=== PATIENT | male | born 1940 | race Caucasian/White ===

== ENCOUNTER 2017-12-01 07:13 | Inpatient (IN) ==
[2017-11-25 12:25] LABS: Basophils # (Auto) 0 K/mcL (0.0-0.3); Basophils % (Auto) 0.5 % (0.0-2.0); Eosinophils # (Auto) 0.1 K/mcL (0.0-0.7); Granulocytes % (Auto) 72.5 % (38.0-78.0); Lymphocytes # (Auto) 1.4 K/mcL (1.5-4.8); Lymphocytes % (Auto) 17.4 % (15.5-49.0); Mean Cell Volume 92.3 fL (80.0-100.0); Mean Corpuscular HGB Conc 33.6 g/dL (31.0-36.0); Monocytes # (Auto) 0.7 K/mcL (0.1-0.9); Monocytes % (Auto) 8.6 % (1.0-12.0); Platelet Count 264 K/mcL (140-440); RBC 5.08 M/mcL (4.50-5.90); Red Cell Distribution Width 13.4 % (11.5-14.5)
[2017-11-25 12:46] LABS: Blood Urea Nitrogen 16 mg/dl (8-23)
[2017-11-25 13:43] LABS: Appearance,Urine CLEAR; Bacteria,Urine 0 /hpf (0); Bilirubin,Urine NEG (NEG); Color,Urine YELLOW; Glucose,Urine (UA) NEGATIVE (NEG); Leukocyte Esterase,Urine NEG /uL (NEG); Mucus,Urine FEW /hpf (0); Protein,Urine 100 mg/dL (NEG); Specific Gravity,Urine 1.014 (1.000-1.035); Urine Blood >=1.0 mg/dL (<0.03); Urine RBC > 182 /hpf (0-1); Urine Squamous Epithelial Cell 0 /hpf (0-4); Urine WBC 11 /hpf (0-4); Urobilinogen,Urine NEG (NEG)
[~2017-12-01 07:13] MED LIST: CELECOXIB 200 MG CAPSULE PO SCH; KETOROLAC 30 MG, ROPIVACAINE HCL/PF 49.5 ML, EPINEPHrine 0.5 MG, 0.9 % SODIUM CHLORIDE ... IJ SCH; PREGABALIN 75 MG CAPSULE PO SCH; ceFAZolin 1 GM VIAL IV SCH; oxyCODONE 10 MG TAB.ER.12H PO SCH
[2017-12-01] MEDS ORDERED: 0.9 % SODIUM CHLORIDE 250 ML IV SCH (07:45)
[2017-12-01] MEDS ORDERED: TRANEXAMIC ACID 1,000 MG/10 ML VIAL IV ONE ×2 (09:30→11:35)
[2017-12-01] MEDS ORDERED: ONDANSETRON 4 MG/2 ML VIAL IV ONE (09:30)
[2017-12-01] MEDS ORDERED: LIDOCAINE HCL/PF 100 MG/5 ML SYRINGE IV ONE (09:30)
[2017-12-01] MEDS ORDERED: PROPOFOL 200 MG/20 ML VIAL IV ONE (09:30)
[2017-12-01] MEDS ORDERED: GLYCOPYRROLATE 0.2 MG/ML VIAL IV ONE (09:30)
[2017-12-01] MEDS ORDERED: PHENYLEPHRINE 10 MG/ML VIAL IV ONE (09:30)
[2017-12-01] MEDS ORDERED: MIDAZOLAM 5 MG/5 ML VIAL IV ONE (09:30)
[2017-12-01] MEDS ORDERED: DEXAMETHASONE 10 MG/ML VIAL IV ONE (09:30)
[2017-12-01] MEDS ORDERED: BUPIVACAINE W/EPI 0.5% 50 ML VIAL IJ ONE (09:30)
[2017-12-01] MEDS ORDERED: ACETAMINOPHEN 1,000 MG/100 ML BOTTLE IV ONE (11:06)
[2017-12-01] MEDS ORDERED: fentaNYL 100 MCG/2 ML VIAL IV PRN (11:06)
[2017-12-01] MEDS ORDERED: ONDANSETRON 4 MG/2 ML VIAL IV PRN ×2 (11:06→11:35)
[2017-12-01] MEDS ORDERED: PROMETHAZINE 25 MG/ML VIAL IV PRN (11:06)
[2017-12-01] MEDS ORDERED: MEPERIDINE 25 MG/ML SYRINGE IV PRN (11:06)
[2017-12-01] MEDS ORDERED: METHOCARBAMOL 1,000 MG/10 ML VIAL IV PRN (11:06)
[2017-12-01] MEDS ORDERED: IPRATROPIUM/ALBUTEROL 3 ML AMPUL.NEB NEB PRN (11:06)
[2017-12-01] MEDS ORDERED: LACTATED RINGERS 1,000 ML IV SCH (11:15)
[2017-12-01] MEDS ORDERED: BENZOCAINE/MENTHOL 1 LOZENGE PO PRN (11:35)
[2017-12-01] MEDS ORDERED: POLYETHYLENE GLYCOL 3350 17 GM PACKET PO PRN (11:35)
[2017-12-01] MEDS ORDERED: HYDROcodone/APAP 10/325MG TABLET PO PRN (11:35)
[2017-12-01] MEDS ORDERED: FLEETS ADULT ENEMA PR PRN (11:35)
[2017-12-01] MEDS ORDERED: BISACODYL 10 MG SUPP.RECT PR PRN (11:35)
[2017-12-01] MEDS ORDERED: HYDROmorphone 2 MG/ML VIAL IV PRN (11:35)
[2017-12-01] MEDS ORDERED: MAGNESIUM HYDROXIDE 30 ML ORAL.SUSP PO PRN (11:35)
--- NOTE | 2017-12-01 11:35 | Brief Operative Note ---
Date of procedure: 12/01/17 Pre-op diagnosis: Left knee DJD Post-op diagnosis: same Procedure: Left Robotic TKA Grafts/Implants: Yes (Roselia Triathlon CR 8 femur, 7 tibia, 9mm inset, 36 patella) Anesthesia: spinal, GLMA Findings: arthritis in multiple compartments Complications: none Surgeon: Kush Robbins [employer] And Planning: Erika Pinedo Estimated blood loss (cc): 30 Specimens Removed/Pathology: none sent Condition: stable Disposition: PACU
[2017-12-01] MEDS ORDERED: ceFAZolin 1 GM VIAL IV SCH (11:45)
--- NOTE | 2017-12-01 12:28 | XRay Report ---
HISTORY: Reason for Exam:Post-op total knee FINDINGS: There is a well positioned total knee prosthesis. No fracture is present. There are no abnormal soft tissue calcifications. IMPRESSION: Well-positioned left knee prosthesis Interpreted and Authenticated by: Lai Drummond 12/01/17
[2017-12-01] MEDS: KETOROLAC 15 MG/ML VIAL IV SCH ×2 (13:35→17:49)
[2017-12-01] MEDS: 0.9 % SODIUM CHLORIDE 1,000 ML IV SCH ×2 (13:57→23:42)
[2017-12-01] MEDS: 0.9 % SODIUM CHLORIDE 10 ML SYRINGE IV SCH (13:57)
[2017-12-01] MEDS: ceFAZolin 1 GM VIAL IV SCH (17:13)
[2017-12-01] MEDS: DOCUSATE SODIUM 100 MG CAPSULE PO SCH (19:39)
[2017-12-01] MEDS: ASPIRIN 325 MG ENTERIC COATED TABLET PO SCH (19:39)
[2017-12-01] MEDS ORDERED: SENNOSIDES 1 TABLET PO SCH (21:00)
[2017-12-02] MEDS: KETOROLAC 15 MG/ML VIAL IV SCH ×2 (00:29→04:39)
[2017-12-02] MEDS: ceFAZolin 1 GM VIAL IV SCH (00:30)
[2017-12-02] MEDS: 0.9 % SODIUM CHLORIDE 10 ML SYRINGE IV SCH ×2 (00:30→04:39)
--- NOTE | 2017-12-02 08:03 | Discharge Summary ---
Ortho Discharge - TKA - Patient Instructions Diet: Regular Diet Activity: activity as tolerated, weight bearing as tolerated Total Knee Protocol: For Total Knee: Start ROM CINDY with stationary bike or rocking chair. Work on gaining full extension of knee. Posterior dislocation precautions provided. Hip abductor strengthening and gait training instructions provided. Apply Cryocuff as instructed. Dressing Care: May shower in 2 days - Follow Up Plan Follow Up Appointments: Kush Robbins MD [Physician] - 12/16/17 10:40 am Disposition: Home, Self-Care Prognosis: Good Rehab Potential: Good - Orders For Discharge Additional Discharge Orders: Physical Therapy at Discharge - TKA Location: Determined By Patient Toilet Riser Discharge Order Location: Determined By Patient Walker Location: Determined By Patient
--- NOTE | 2017-12-02 08:31 | Operative Note ---
DATE OF OPERATION: 12/01/2017 PREOPERATIVE DIAGNOSIS: Left knee osteoarthritis. POSTOPERATIVE DIAGNOSIS: Left knee osteoarthritis. PROCEDURE PERFORMED: Left robotic-assisted total knee arthroplasty with a Roselia triathlon size 8 cruciate retaining femoral component, size 7 tibial baseplate, 9 mm X3 tibial insert with a 36 mm patellar button. SURGEON: Kush Robbins MD. SCHEDULER CONVEYOR: Erika Pinedo PA-C ANESTHESIA: Spinal plus general. DRAINS: None. SPECIMENS: Bone cuts, which were discarded. BLOOD LOSS: 30 mL COMPLICATIONS: None. POSTOPERATIVE CONDITION: Stable. INDICATIONS FOR SURGERY: This is a 77-year-old male who has had progressively worsening knee pain. Radiographs showed koyi-[id number] medial compartment arthritis. FINDINGS AT SURGERY: He did have qwpq-[id number] medial compartment arthritis; however, he also had full thickness trochlear groove wear as well. Post-implantation of the knee showed good overall limb alignment with good stability and patellar tracking. PROCEDURE IN DETAIL: The patient had been seen preoperatively. Informed consent had been obtained after discussion of risks and benefits of surgery. Risks including, but not limited to, bleeding, possibly requiring transfusion; infection, possibly requiring implant removal and prolonged IV antibiotics; injury to nerves, blood vessels, and other surrounding structures; anesthetic risks; incomplete or no resolution of symptoms; stiffness, pain, swelling, instability; DVT and pulmonary embolus risks; and the possibility of needing further revision surgery. He understood these risks and wished to proceed. Correct operative site was marked and then patient received spinal anesthesia. He was then taken to the operating room and LMA general given. The left lower extremity was carefully prepped and draped in normal sterile fashion and a timeout was performed verifying patient name, operative site, and plan. Esmarch was used to exsanguinate the extremity and tourniquet was inflated. Midline incision was made with a scalpel through skin and subcutaneous tissue. IrriSept was irrigated and then a medial parapatellar arthrotomy made. Subperiosteal exposure was done of the anterior medial tibia. We then did an inspection of the knee and revealed trochlear groove full-thickness cartilage loss, so based off this we elected to switch from a partial knee to a total knee. We went ahead and did a subperiosteal exposure of the distal anterior cortex of the femur. Menisci were removed. ACL was transected. A drill hole and about two stab incisions were made over the femur and two in the tibia and then drill pins were placed, two in the femur and two in the tibia. We then connected the arrays. We then placed our checkpoints on the femur and tibia. Hip center of rotation was checked followed by a green probe check of the medial and lateral malleoli. We also did double checks of the femoral and tibial checkpoints. We then used the blue probe to do our cartilage mapping. Once this was completed, we then removed osteophytes. We then used a spoon to check our flexion and extension gaps and we adjusted the implants so we were approximately 17 mm gaps medial lateral in flexion and extension. We then used the robotic arm to perform our bone cuts. The tibia was marked for rotation and then tibial baseplate was prepared for with the Second Porchs reamer and keel punch. We placed the keel tibial trial and the femur was elevated. A curved osteotome was used to remove posterior osteophytes and then we also removed the posterior horn of the menisci. We then placed our femoral trial and drilled our peg holes. A 9 insert trial was placed and the knee was taken into extension. Patella was cut freehand and sized to a 36 which was medialized maximally. Pegs holes were drilled and then the patellar trial was placed. We checked our range of motion and stability which looked good, so we went ahead and removed trial implants while definitive open implants were opened. Antibiotic cement was mixed. We filled the joint with IrriSept and after waiting a minute we pulse lavaged copiously with saline and then used the CO2 gun to clean and dry the cancellous bone surfaces. We cemented the tibia followed by the femur. Excessive cement was removed. A 9 insert trial was placed. The patella was then cemented. We filled the joint with IrriSept and then injected pain cocktail throughout the joint. After waiting a minute we pulse lavaged copiously with saline. Once cement had fully hardened, we flexed the knee up and removed the 9 insert trial. We opened the definitive 9 insert. We injected pain cocktail in the posterior capsule. IrriSept was irrigated and the insert was impacted. After a minute we pulse lavaged and then the knee was placed in about 45 degrees of flexion and interrupted #2 FiberWire [id number] were used around the superior quadrant of the patella, #1 Vicryl [id number] around the inferior quadrant, running #1 Vicryl for patellar tendon and quad tendon. The closure was done only after checkpoints were removed. We then removed our pins for the arrays and then did IrriSept irrigation. After a minute we pulse lavaged and then used 2-0 Monocryl for subcutaneous and francisca for skin. Xeroform and sterile dressing were applied. Tourniquet was released. The patient was awakened, extubated, and transferred to recovery in stable condition. [email or web address] Job ID: [id number] Doc ID: [id number] Kush Robbins MD
[2017-12-02] MEDS: ASPIRIN 325 MG ENTERIC COATED TABLET PO SCH (08:46)
[2017-12-02] MEDS: DOCUSATE SODIUM 100 MG CAPSULE PO SCH (08:46)
--- NOTE | 2017-12-02 09:12 | Orthopedic Progress Note ---
Subjective Patient information: Note initiated : 12/02/17 at 9:11 am Service Date, if different from initiated Date: [] Patient: Leo Marie 77 y/o M admitted on 12/01/17 for Left Uni Medial Chau Knee vs Total Knee A. Chief Complaint: [] Interval history: no c/o, wants to go home Objective Vital signs: Vital Signs Temp Pulse Resp BP BP Pulse Ox 12/02/17 08:08 97.9 F 72 20 144/72 95 12/02/17 04:00 97.8 F 78 20 134/66 94 12/02/17 00:00 98.2 F 90 20 123/66 93 12/01/17 20:00 97.7 F 97 H 24 H 157/74 94 12/01/17 13:38 81 145/81 94 12/01/17 13:23 134/73 93 12/01/17 13:08 66 133/75 94 12/01/17 12:53 76 145/70 92 12/01/17 12:45 98.1 F 76 16 130/64 96 12/01/17 12:30 71 17 132/66 96 12/01/17 12:15 85 17 122/74 96 12/01/17 11:56 98.0 F 91 H 18 142/71 97 Intake and Output 12/01/17 12/02/17 12/02/17 21:59 05:59 13:59 Intake Total 2840 / 2840 480 / 480 Balance 2840 / 2840 480 / 480 Intake: IV 1000 / 1000 Oral 1840 / 1840 480 / 480 Other: Meal Dinner Randolph Breakfast Percent of Meal Consumed 100% 100% 100% Feeding Ability Independent Independent Independent # Voids 1 1 Weight 236 lb 8 oz Intake & Output: Intake & Output 12/01/17 12/02/17 12/02/17 21:59 05:59 13:59 Intake Total 2840 / 2840 480 / 480 Balance 2840 / 2840 480 / 480 Weight 236 lb 8 oz Intake: IV 1000 / 1000 Oral 1840 / 1840 480 / 480 Other: Meal Dinner Randolph Breakfast Percent of Meal Consumed 100% 100% 100% Feeding Ability Independent Independent Independent # Voids 1 1 Neurological exam IM: Yes alert, Yes oriented X3 - Labs CBC & BMP: 12/02/17 04:23 01/25/18 10:04 Labs: 12/02/17 11/25/17 04:23 10:04 Hgb 13.4 L 15.8 Hct 40.1 L 46.9 Assessment and Plan (1) S/P total knee arthroplasty POD#1-stable -d/c home Status: Acute
== END 2017-12-02 11:05 | disposition home or self-care (01) | DRG 470 ==
LOC: SUR 07:13 → MEDSUR 12:52
PROVIDERS: ADMIT Orthopaedic Surgery; ATTEND Orthopaedic Surgery